=== PATIENT | male | born 1950 | race Caucasian/White ===

== ENCOUNTER 2023-09-09 20:26 | Emergency (ER) | payer MEDICARE, OTHER, SELFPAY ==
[2023-09-09 20:30] VITALS: BP 124/78
[2023-09-09 20:46] LABS: % Eosinophils 19.2 % (0-6); % Immature Granulocytes 0.3 % (0-0.5); % Lymphocytes 21.4 % (20.5-51.1); % Monocytes 8.1 % (1.7-9.3); Absolute Basophils 0.2 10^3/uL (0-0.2); Absolute Eosinophils 1.8 10^3/uL (0-0.7); Absolute Monocytes 0.8 10^3/uL (0.1-0.6); Absolute Neutrophils 4.7 10^3/uL (1.4-6.5); Hematocrit 40.7 % (39.0-52.0); Hemoglobin 13.2 g/dL (13.0-18.0); Mean Corp Hgb Conc. 32.4 g/dL (33.0-37.0); Mean Corpuscular Hgb 28.5 pg (27.0-31.0); Mean Corpuscular Volume 87.9 fL (80.0-94.0); Mean Platelet Volume 10.5 fL (7.4-10.4); Nucleated Red Blood Cells % 0 % (-); Platelet Count 192 10^3/uL (130-400); Red Blood Cell Count 4.63 10^6/uL (4.70-6.10); Red Cell Dist. Width 13.8 % (11.5-14.5); White Blood Cell Count 9.6 10^3/uL (4.8-10.8)
[2023-09-09 21:00] LABS: ALT (SGPT) 11 U/L (0-50); AST (SGOT) 18 U/L (17-59); Albumin 4.1 g/dl (3.5-5.0); Alkaline Phosphatase 94 U/L (38-126); Blood Urea Nitrogen 32 mg/dl (9-20); Calcium 9.6 mg/dl (8.4-10.2); Carbon Dioxide 23 mmol/L (22-30); Chloride 107 mmol/L (98-107); Glucose 106 mg/dl (70-99); Potassium 4.5 mmol/L (3.5-5.1); Sodium 138 mmol/L (135-145); Total Bilirubin 0.3 mg/dl (0.2-1.3); Total Protein 7.1 g/dl (6.3-8.2); eGFR 33.03
[2023-09-09 22:10] VITALS: BMI 26.3
--- NOTE | 2023-09-09 22:18 | EDRN ---
Pt's says pt has had low bp problems since he was put on a kidney 'friendly' bp medication. Past couple days, pt has been dizzy when he stands and getting cold sweat. BP 75/59 and pt's says she was scared when she saw this and brought pt
to ED for evaluation. Pt with decreased energy and 'star bursts' in his eyes. Pt had a cold few weeks ago and he has had a lingering cough since. Pt had covid in March and says he has not returned to his normal since. No cp unless pt coughs,
it north. No sob, abd pain, n/v, fever.
[2023-09-09 22:24] VITALS: BP 107/79
--- NOTE | 2023-09-09 22:25 | EDRN ---
Pt saw Dr Estrella on Sunday and was taken off lisinopril because pt was having dizziness and low bps. Cold sweats and 'starburts' are new symptoms.
--- NOTE | 2023-09-09 22:40 | ED.GENMED ---
History of Present Illness
General
Chief Complaint: Blood Pressure Problem
Source: patient and spouse
Exam Limitations: none
Time Seen by Provider: 09/09/23 22:07
Travel History
Have you had any contact with someone who has COVID-19?: No
Do you have any symptoms of coronavirus? Fever > 100 degrees, chills, cough, shortness of breath, sore throat, loss of taste or smell, muscle aches, or headache?: No
History of Present Illness
History of Present Illness:
This is a 72 year old male that comes in with c/o low BP. Sates that they took his BP at home when he was standing up and it was 75/something. States that he has been having issues with low BP for months. States that he was on BP medication in the
past and they took him off of this due to his Kidney function. States that he was given Lisinopril. States that he was getting dizzy with standing and the past couple of days he was getting this star burst in his vision and would have cold sweats.
States that he stopped the Lisinopril on Sunday. States that Dr. Estrella has been handling his BP. States that he always has a headache, dizziness and the SOB is always. Denies any fever, chills, chest pain, abd pain, nausea, vomiting, diarrhea,
urinary burning
Past History
Past History
ED Past Medical History: Asthma, Hypercholesterolemia, Psychiatric (Depression) and Other (Chronic renal insufficiency, Ulcers)
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
Social History
Tobacco: Former smoker
Alcohol: Former
Drug: None
Personal:
Living: with family
Review of Systems
Review of Systems
All Other Systems: ROS reviewed and negative except as documented in HPI and ROS
Constitutional: Reports no symptoms; Denies fever or chills
EENT: Reports no symptoms
Respiratory: Reports trouble breathing; Denies cough
Cardiac: Reports no symptoms; Denies chest pain
ABD/GI: Reports no symptoms; Denies abdominal pain, nausea, vomiting or diarrhea
: Reports no symptoms; Denies dysuria, frequency or urgency
Musculoskeletal: Reports no symptoms
Skin: Reports no symptoms
Neurological: Reports dizzy and headache
Psychiatric: Reports no symptoms
Phy Exam
General Physical Exam
General Presentation: well appearing and no apparent distress
General age: appears stated age
General Skin: warm and dry
General Habitus: elderly
General Mental: alert
General Hydration: appears well hydrated
ENT Exam
ENT Exam: TM's normal, pharynx normal and neck supple
Eye Exam
Eye Exam: EOMI
Cardiovascular Exam
Cardiovascular Exam: regular rate/rhythm, no edema, no murmur and normal peripheral pulses
Pulmonary Exam
Pulmonary Exam: lungs clear, no respiratory distress, no rales, chest non tender, no crackles, no rhonchi, no wheezing and no cough
Gastrointestinal Exam
Gastrointestinal Exam: normal bowel sounds, non tender, soft, no organomegaly, no pulsatile mass and non distended
Musculoskeletal Exam
Musculoskeletal Exam: full ROM and no edema
Skin Exam
Skin Exam: normal color, warm/dry, no rash and no petechia
Psychiatric Exam
Psychiatric Exam: normal mood/affect
Course
Orders/Labs/Results
Orders:
Orders
09/09/23 20:34
Electrocardiogram (*1) Urgent
Reason for Study: Vertigo / Dizzy
EKG- Treatment ONCE
09/09/23 20:41
CMP [Comprehensive Metabolic Panel] Urgent
Complete Blood Count/With Diff Urgent
09/09/23 22:40
Orthostatic VS- Treatment ONCE
0.9% Sodium Chloride 500 ml [Nss] 500 ml IV BOLUS
09/10/23 00:06
0.9% Sodium Chloride 500 ml [Nss] 500 ml IV BOLUS
Abnormal Lab Results
09/09/23
20:41
RBC 4.63 L 10^6/uL
(4.70-6.10)
MCHC 32.4 L g/dL
(33.0-37.0)
MPV 10.5 H fL
(7.4-10.4)
Absolute Monos (auto) 0.8 H 10^3/uL
(0.1-0.6)
Absolute Eos (auto) 1.8 H 10^3/uL
(0-0.7)
Eosinophils % 19.2 H %
(0-6)
BUN 32 H mg/dl
(9-20)
Creatinine 2.1 H mg/dL
(0.7-1.3)
Glucose 106 H mg/dl
(70-99)
09/09/23 20:41
09/09/23 20:41
Chronic renal insufficiency, Glucose nonfasting.
Vital Signs
Initial and Last Documented VS:
Initial Vital Signs
Temp Pulse Resp BP Pulse Ox
98.2 F 90 22 124/78 98
09/09/23 20:30 09/09/23 20:30 09/09/23 20:30 09/09/23 20:30 09/09/23 20:30
Last Documented Vital Signs
Temp Pulse Resp BP Pulse Ox
98.2 F 73 16 123/83 98
09/09/23 20:30 09/09/23 23:00 09/09/23 23:00 09/09/23 23:00 09/09/23 20:30
MDM/Problems Addressed
Differential Diagnosis Includes:
Hypotension, Dehydration
MDM/Problems Addressed:
This is a 72 year old male that comes in with c/o hypotension. States that he was standing and his BP was 75/ something. States that his was nervous so they came in.
Will check labs. Orthostatic vitals and give IV fluids. Explained to patient that he is going to have to follow up with Dr. Estrella for further evaluation.
Back into see patient. Patient did tilt before the IV fluids. Patient needs to follow up with Dr. Estrella for further evaluation. Patient to return with any concerns.
Chronic conditions affecting care: Kidney disease
Acute Exacerbation and/or Progression of Chronic Illness: Kidney disease
*Pulse Oximetry
Patient hypoxic: no
*EKG
Interpreted by ED Provider?: Yes
Heart Rate: 74
Rate: normal
Rhythm: sinus
[place]: normal axis
Interval: normal interval
QRS Pattern: low voltage
Ischemia: no ischemia
*Wallpaper Scraper Interpretation
Rate: normal
Heart Rate: 80
Rhythm: sinus
*Critical Care Note
Total Time (30-74mins, 75-104mins- exclusive of procedures): Not Applicable
ED Attending Note
-
Portions of this chart may have been created with voice recognition software.� Occasional wrong word or��sound alike� substitutions may have occurred due to the inherent limitations of voice recognition software.
Discharge Plan
Departure
Patient Disposition: Home (Routine Discharge)
Date of Disposition: 09/10/23
Time of Disposition: 01:29
Patient with high blood pressure during this ER visit?: No
Condition: Good
Covid-19: Not Applicable
Discharge Problem:
Hypotension
Instructions: Low Blood Pressure (DC)
Prescriptions:
No Action
chlorpheniramine maleate 4 mg Tablet
4 mg PO BID
atorvastatin 10 mg Tablet
10 mg PO DAILY
omeprazole 40 mg Capsule,Delayed Release(Dr/Ec)
40 mg PO DAILY
acetaminophen 500 mg Tablet
500 mg PO .TID-QID PRN (Reason: pain)
albuterol sulfate [ProAir HFA] 90 mcg/actuation Hfa Aerosol Inhaler
2 puff INHALATION .Q4-6HRPRN PRN (Reason: sob)
fiber Capsule
1 cap PO DAILY
Patient Comments:
pt does not know mg
cholecalciferol (vitamin D3) [Vitamin D3] 50 mcg (2,000 unit) Capsule
100 mcg PO DAILY
duloxetine 60 mg Capsule, Delayed Rel Sprinkle
60 mg PO DAILY
Referrals:
Gary Rivas MD [Family Provider] - Call in 1-3 days for appt
Andrea Estrella MD [Active] - Follow up in 2-3 days
Activity Restrictions/Additional Instructions:
As discussed, you need to continue with your 8-8oz glasses daily of water. Follow up with Dr. Estrella for further evaluation. When you go from a lying position please sit on the edge of the bed for about 5 min to let your blood pressure get adjusted to
the change. Then when you go to stand up stand there without going any further for about 5 min and then you may start to walk. IF YOU HAVE ANY OTHER CONCERNS PLEASE RETURN TO THE EMERGENCY ROOM.
Interventions
Interventions:
*Risk Screen - Suicide Last Done: 09/09/23 20:30
*General Assessment Last Done: 09/09/23 22:10
*Neglect/Abuse Screening Last Done: 09/09/23 20:30
ED- Fall Risk Assessment Last Done: 09/09/23 22:28
*ED COVID-19 Vaccine History Last Done: 09/09/23 22:00
ED- Cardiac Assessment Last Done: 09/09/23 22:28
ED- Neurological Assessment Last Done: 09/09/23 22:28
ED- Pulmonary Assessment Last Done: 09/09/23 22:28
Discharge Date and Time
Print Language: SUDANESE
[2023-09-09 22:53] VITALS: BP 108/76; BP 116/84; BP 87/68; PULSE 101; PULSE 72; PULSE 79
[2023-09-09] MEDS: NSS 500 IV (22:58)
[2023-09-09 23:00] VITALS: BP 123/83
[2023-09-10] VITALS: BP 109/76; BP 109/78; BP 88/65; PULSE 70; PULSE 73; PULSE 88
[2023-09-10] MEDS: NSS 500 IV (00:08)
[2023-09-10 01:00] VITALS: BP 110/76
== END 2023-09-10 01:46 | disposition home or self-care (01) ==
LOC: EMR 20:26
PROVIDERS: Student in an Organized Health Care Education/Training Program; EMERGENCY PHYSICIAN Emergency Medicine; FAMILY PHYSICIAN Family Medicine
DX: I95.9 Hypotension, unspecified (principal); J45.909 Unspecified asthma, uncomplicated; E78.00 Pure hypercholesterolemia, unspecified; F32.A Depression, unspecified; Z87.891 Personal history of nicotine dependence
CPT/HCPCS: 99283; 96360 ×2; 80053; 85025; 93005

== ENCOUNTER → 2023-09-20 14:39 | Outpatient (REF) | payer MEDICARE, OTHER, SELFPAY | LOC: HWRAD 14:39 | PROVIDERS: ATTENDING PHYSICIAN Internal Medicine Interventional Cardiology; FAMILY PHYSICIAN Family Medicine | DX: E78.2 Mixed hyperlipidemia (principal); Z87.891 Personal history of nicotine dependence; R42 Dizziness and giddiness; R55 Syncope and collapse | CPT/HCPCS: 93880 ==

== ENCOUNTER → 2023-10-24 15:33 | Outpatient (REF) | payer MEDICARE, OTHER, SELFPAY | LOC: RCS 15:33 | PROVIDERS: ATTENDING PHYSICIAN Internal Medicine Interventional Cardiology; FAMILY PHYSICIAN Family Medicine | DX: R06.02 Shortness of breath (principal); R06.09 Other forms of dyspnea; I95.1 Orthostatic hypotension; E78.2 Mixed hyperlipidemia; Z87.891 Personal history of nicotine dependence | CPT/HCPCS: 93306 ==

== ENCOUNTER → 2023-10-25 07:34 | Outpatient (REF) | payer MEDICARE, OTHER, SELFPAY | LOC: DHCBC/DCA 07:34 | PROVIDERS: ATTENDING PHYSICIAN Internal Medicine Interventional Cardiology; FAMILY PHYSICIAN Family Medicine | DX: R06.02 Shortness of breath (principal); R06.09 Other forms of dyspnea; E78.2 Mixed hyperlipidemia; Z87.891 Personal history of nicotine dependence | CPT/HCPCS: 78452; 93017; A9500 ==

== ENCOUNTER → 2024-08-15 09:26 | Outpatient (REF) | payer MEDICARE, OTHER, SELFPAY | LOC: HWRAD 09:26 | PROVIDERS: ATTENDING PHYSICIAN Internal Medicine; FAMILY PHYSICIAN Family Medicine | DX: Z87.891 Personal history of nicotine dependence (principal) | CPT/HCPCS: 71271 ==

== ENCOUNTER → 2024-08-21 12:12 | Outpatient (REF) | payer MEDICARE, OTHER, SELFPAY | LOC: RAD 12:12 | PROVIDERS: ATTENDING PHYSICIAN Family Medicine; FAMILY PHYSICIAN Family Medicine | DX: R05.1 Acute cough (principal) | CPT/HCPCS: 71046 ==